=== PATIENT | male | born 1975 | race Caucasian/White ===

== ENCOUNTER 2017-05-22 04:54 | Inpatient (IN) | payer SELFPAY ==
[~2017-05-22] VITALS: Ht 190.5 cm; Wt 82.0 kg
[2017-05-22 05:01] VITALS: BP 121/76; PULSE 68; RESP 20; TEMP 98.7; O2SAT 96
[2017-05-22] MEDS ORDERED: MORPHINE SULFATE 2 MG/ML INJ IV PUSH ONE (05:30)
[2017-05-22] MEDS ORDERED: ONDANSETRON HCL 4 MG/2 ML VIAL IV PUSH ONE (05:30)
[2017-05-22] MEDS: SODIUM CHLOR 0.9% 1000 ML INJ 1,000 ML IV SCH ×6 (05:30→21:30)
[2017-05-22 05:31] VITALS: O2SAT 99
--- NOTE | 2017-05-22 05:34 | PD ---
HPI Chief Complaint: Fall Time Seen by Provider: 05:07 Travel History International Travel<30 days: No Contact w/Intl Traveler<30days: No Traveled to known affect area: No History of Present Illness HPI 41-year-old male complains of left upper back pain, left testicle pain and right low back pain. Patient states that he fell off a ladder last night. Patient denies loss of consciousness. Patient denies any headache or neck pain. Patient denies any states that has sharp pain localized left upper back and left lower rib cage area. Patient complained of left flank pain and right low back pain. Patient denies any focal weakness or numbness of extremity. Patient denies any extremity injury. Patient was seen at emergency room in [place]. CT scan abdomen pelvis shows left lower pole renal laceration. CT chest shows small volume left pneumothorax measuring approximately 10%. Mildly displaced posterior left 12th rib fracture. Possible compression fracture T4 through T6 thoracic vertebral bodies. Patient was transferred to [place] ED for further treatment. Patient was accepted by trauma surgeon for transfer. Patient has history IV drug abuse including cocaine and oxycodone. PFSH Past Medical History Psychiatric: Yes (ptsd) Tetanus Vaccination: Unknown Influenza Vaccination: No Social History Alcohol Use: Yes Tobacco Use: Yes Substance Use: Yes (oxy few times wk/cocaine shootup) Allergies-Medications (Allergen,Severity, Reaction): Coded Allergies: No Known Allergies (Verified Allergy, Unknown, 05/22/17) Review of Systems General / Constitutional: No: Fever Eyes: No: Visual changes HENT: No: Headaches Cardiovascular: No: Chest Pain or Discomfort Respiratory: No: Shortness of Breath Gastrointestinal: No: Abdominal Pain Genitourinary: No: Dysuria Musculoskeletal: No: Pain Skin: No Rash Neurologic: No: Weakness Psychiatric: No: Depression Endocrine: No: Polydipsia Hematologic/Lymphatic: No: Easy Bruising Physical Exam Narrative GENERAL: Well-nourished, well-developed patient. SKIN: Focused skin assessment warm/dry. HEAD: Normocephalic. EYES: No scleral icterus. No injection or drainage. NECK: Supple, trachea midline. No JVD or lymphadenopathy. CARDIOVASCULAR: Regular rate and rhythm without murmurs, gallops, or rubs. RESPIRATORY: Breath sounds equal bilaterally. No accessory muscle use. GASTROINTESTINAL: Abdomen soft, non-tender, nondistended. MUSCULOSKELETAL: No cyanosis, or edema. BACK: Moderate tenderness in palpation left upper back and left lower rib cage area. No crepitus no deformity noted. Without obvious deformity. No CVA tenderness. Neurologic exam normal. Data Data Last Documented VS Vital Signs Date Time Temp Pulse Resp B/P (MAP) Pulse Ox O2 Delivery O2 Flow Rate FiO2 05/22/17 05:01 98.7 68 20 121/76 (91) 96 Orders Orders Complete Blood Count With Diff (05/22/17 05:21) Comprehensive Metabolic Panel (05/22/17 05:21) Prothrombin Time / Inr (Pt) (05/22/17 05:21) Act Partial Throm Time (Ptt) (05/22/17 05:21) Urinalysis - C+S If Indicated (05/22/17 05:21) Chest, Single Ap (05/22/17 05:21) Iv Access Insert/Monitor (05/22/17 05:21) Ecg Monitoring (05/22/17 05:21) Oximetry (05/22/17 05:21) Sodium Chlor 0.9% 1000 Ml Inj (Ns 1000 M (05/22/17 05:30) Morphine Inj (Morphine Inj) (05/22/17 05:30) Ondansetron Inj (Zofran Inj) (05/22/17 05:30) MDM Medical Decision Making Medical Screen Exam Complete: Yes Emergency Medical Condition: Yes Differential Diagnosis Differential diagnosis including chest injury, abdominal injury. Narrative Course 41-year-old male with left rib fracture, left pneumothorax, laceration left kidney. Status post fall from a ladder. Patient was seen in the emergency room in [place] and transferred to [facility]. Diagnosis Primary Impression: Pneumothorax, left Additional Impressions: Kidney laceration, left Qualified Codes: S37.032A - Laceration of left kidney, unspecified degree, initial encounter Fracture of rib of left side Qualified Codes: S22.32XA - Fracture of one rib, left side, initial encounter for closed fracture Simone Ames MD May 22, 2017 05:34
--- NOTE | 2017-05-22 05:57 | RADRPT ---
EXAM DATE/TIME: 05/22/2017 05:33 [facility] COMPARISON: No previous studies available for comparison. INDICATIONS : Fell off ladder. Left rib pain. MEDICAL HISTORY : Prior rib fractures. SURGICAL HISTORY : None. ENCOUNTER: Initial ACUITY: 1 day PAIN SCORE: 9/10 LOCATION: Bilateral chest FINDINGS: Underinflated AP view of the chest demonstrates a normal-sized cardiac silhouette. There is minimal a telectasis at the lung bases. No effusion, consolidation, or pneumothorax is seen. The bones and soft tissues demonstrate no acute finding. 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 EKG li sang overlie the patient. CONCLUSION: Mild atelectasis at the lung bases. Otherwise, no acute finding is identified. No acute rib abnormali ty is seen. Jorge Slater MD on May 22, 2017 at 5:54 Board Certified Radiologist. This report was verified electronically.
[2017-05-22 06:06] LABS: AUTOMATED NEUTROPHIL # 3.7 TH/MM3 (1.8-7.7); BASOPHIL # 0.1 TH/MM3 (0-0.2); BASOPHIL % 0.8 % (0.0-2.0); EOSINOPHIL # 0.3 TH/MM3 (0-0.4); EOSINOPHIL % 4.1 % (0.0-4.0); HEMATOCRIT 37.3 % (39.0-51.0); HEMOGLOBIN 12.8 GM/DL (13.0-17.0); LYMPH % 35.3 % (9.0-44.0); LYMPHOCYTE # 2.9 TH/MM3 (1.0-4.8); MEAN CELL VOLUME 82.3 FL (80.0-100.0); MEAN CORPUSCULAR HEMOGLOBIN 28.3 PG (27.0-34.0); MEAN CORPUSCULAR HGB CONC 34.4 % (32.0-36.0); MEAN PLATELET VOLUME 7.8 FL (7.0-11.0); MONO % 14.6 % (0.0-8.0); MONOCYTE # 1.2 TH/MM3 (0-0.9); NEUT % 45.2 % (16.0-70.0); PLATELET COUNT 256 TH/MM3 (150-450); RED BLOOD COUNT 4.53 MIL/MM3 (4.50-5.90); WHITE BLOOD COUNT 8.2 TH/MM3 (4.0-11.0)
[2017-05-22] MEDS ORDERED: MISCELLANEOUS NURSING INFORMATION XX SCH (06:15)
[2017-05-22] MEDS ORDERED: ONDANSETRON HCL 4 MG/2 ML VIAL IV PUSH PRN (06:15)
[2017-05-22] MEDS ORDERED: MAGNESIUM HYDROXIDE SUSP 30 ML CUP PO PRN (06:15)
[2017-05-22] MEDS ORDERED: SODIUM CHLORIDE 0.9% FLUSH 10 ML FLUSH IV FLUSH PRN (06:15)
[2017-05-22] MEDS ORDERED: ENALAPRILAT 1.25 MG/ML VIAL IV PUSH PRN (06:15)
[2017-05-22] MEDS ORDERED: CHLORHEXIDINE GLUCONATE 2 % 1 PACK (2 CLOTHS) TOP PRN (06:15)
--- NOTE | 2017-05-22 06:15 | HHI.HP ---
HPI Service Critical Care Medicine Primary Care Physician Unknown Admission Diagnosis Left pneumothorax. Left renal laceration. Left rib fracture Diagnosis: Chief Complaint: Shortness of breath, left-sided back pain Travel History International Travel<30 Days: No Contact w/Intl Traveler <30 Da: No Traveled to Known Affected Are: No History of Present Illness 41-year-old man who was standing on the top rung of the ladder hanging floodlights when the ladder slipped out from under him he states he fell landing with his left side onto the ladder. He was evaluated at the [facility] and found on CT to have an occult left-sided pneumothorax 12th rib fracture, and a grade 3-4 left-sided inferior pole renal laceration. He was transferred to [facility] for definitive management of his traumatic injuries. Of note he is a user of cocaine and narcotics. Review of Systems Constitutional: DENIES: Diaphoretic episodes, Fatigue, Fever, Weight gain, Weight loss, Chills, Dizziness, Change in appetite, Night Sweats Endocrine: DENIES: Heat/cold intolerance, Polydipsia, Polyuria, Polyphagia Eyes: DENIES: Blurred vision, Diplopia, Eye inflammation, Eye pain, Vision loss , Photosensitivity, Double Vision Ears, nose, mouth, throat: DENIES: Tinnitus, Hearing loss, Vertigo, Nasal discharge, Oral lesions, Throat pain, Hoarseness, Ear Pain, Running Nose, Epistaxis, Sinus Pain, Toothache, Odynophagia Respiratory: COMPLAINS OF: Shortness of breath, DENIES: Apneas, Cough, Snoring , Wheezing, Hemoptysis, Sputum production Cardiovascular: COMPLAINS OF: Chest pain (left sided chest wall pain) Gastrointestinal: DENIES: Abdominal pain, Black stools, Bloody stools, Constipation, Diarrhea, Nausea, Vomiting, Difficulty Swallowing, Anorexia Genitourinary: COMPLAINS OF: Hematuria, DENIES: Sexual dysfunction, Urinary frequency, Urinary incontinence, Urgency, Dysuria, Nocturia, Penile Discharge, Testicular Pain, Testicular Swelling Musculoskeletal: COMPLAINS OF: Muscle aches, Back pain, DENIES: Joint pain, Stiffness, Joint Swelling, Neck pain Integumentary: DENIES: Abnormal pigmentation, Nail changes, Pruritus, Rash Hematologic/lymphatic: DENIES: Bruising, Lymphadenopathy Immunologic/allergic: DENIES: Eczema, Urticaria Neurologic: DENIES: Abnormal gait, Headache, Localized weakness, Paresthesias, Seizures, Speech Problems, Tremor, Poor Balance Psychiatric: COMPLAINS OF: Anxiety (PTSD), DENIES: Confusion, Mood changes, Depression, Hallucinations, Agitation, Suicidal Ideation, Homicidal Ideation, Delusions Past Family Social History Allergies: Coded Allergies: No Known Allergies (Verified Allergy, Unknown, 05/22/17) Past Medical History PTSD Reported Medications None Family History Reviewed and not relevant Social History Denies alcohol use he is a smoker and uses cocaine and narcotics Physical Exam Vital Signs Vital Signs Date Time Temp Pulse Resp B/P (MAP) Pulse Ox O2 Delivery O2 Flow Rate FiO2 05/22/17 05:31 99 Nasal Cannula 2.00 05/22/17 05:01 98.7 68 20 121/76 (91) 96 Physical Exam GENERAL: Well-nourished, well-developed patient. SKIN: Focused skin assessment warm/dry. HEAD: Normocephalic. EYES: No scleral icterus. No injection or drainage. NECK: Supple, trachea midline. No JVD or lymphadenopathy. CARDIOVASCULAR: Regular rate and rhythm without murmurs, gallops, or rubs. RESPIRATORY: Breath sounds equal bilaterally. No accessory muscle use. GASTROINTESTINAL: Abdomen soft, non-tender, nondistended. MUSCULOSKELETAL: No cyanosis, or edema. BACK: Moderate tenderness in palpation left upper back and left flank with no bony crepitus. NERUO: No focal deficit, cranial nerves II through XII appear grossly intact PSYCH: Mood and affect seem appropriate Laboratory Laboratory Tests Test 05/22/17 05:55 White Blood Count 8.2 Red Blood Count 4.53 Hemoglobin 12.8 Hematocrit 37.3 Mean Corpuscular Volume 82.3 Mean Corpuscular Hemoglobin 28.3 Mean Corpuscular Hemoglobin Concent 34.4 Red Cell Distribution Width 16.0 Platelet Count 256 Mean Platelet Volume 7.8 Neutrophils (%) (Auto) 45.2 Lymphocytes (%) (Auto) 35.3 Monocytes (%) (Auto) 14.6 Eosinophils (%) (Auto) 4.1 Basophils (%) (Auto) 0.8 Neutrophils # (Auto) 3.7 Lymphocytes # (Auto) 2.9 Monocytes # (Auto) 1.2 Eosinophils # (Auto) 0.3 Basophils # (Auto) 0.1 CBC Comment DIFF FINAL Differential Comment Result Diagram: 05/22/17 0555 Caprini VTE Risk Assessment Caprini VTE Risk Assessment: Mod/High Risk (score >= 2) VTE Pharm Contraindication: Hemorrhage Caprini Risk Assessment Model Point Value = 1 Point Value = 2 Point Value = 3 Point Value = 5 Age 41-60 Minor surgery BMI > 25 kg/m2 Swollen legs Varicose veins or History of unexplained or recurrent spontaneous Oral contraceptives or hormone replacement Sepsis (< 1 month) Serious lung disease, including pneumonia (< 1 month) Abnormal pulmonary function Acute myocardial infarction Congestive heart failure (< 1 month) History of inflammatory bowel disease Medical patient at bed rest Age 61-74 Arthroscopic surgery Major open surgery (> 45 min) Laparoscopic surgery (> 45 min) Malignancy Confined to bed (> 72 hours) Immobilizing plaster cast Central venous access Age >= 75 History of VTE Family history of VTE Factor V Leiden Prothrombin [id number] Lupus anticoagulant Anticardiolipin antibodies Elevated serum homocysteine Heparin-induced thrombocytopenia Other congenital or acquired thrombophilia Stroke (< 1 month) Elective arthroplasty Hip, pelvis, or leg fracture Acute spinal cord injury (< 1 month) Prophylaxis Regimen Total Risk Factor Score Risk Level Prophylaxis Regimen 0-1 Low Early ambulation 2 Moderate Order ONE of the following: *Sequential Compression Device (SCD) *Heparin 5000 units SQ BID 3-4 Higher Order ONE of the following medications: *Heparin 5000 units SQ TID *Enoxaparin/Lovenox 40 mg SQ daily (WT < 150 kg, CrCl > 30 mL/min) *Enoxaparin/Lovenox 30 mg SQ daily (WT < 150 kg, CrCl > 10-29 mL/min) *Enoxaparin/Lovenox 30 mg SQ BID (WT < 150 kg, CrCl > 30 mL/min) AND/OR *Sequential Compression Device (SCD) 5 or more Highest Order ONE of the following medications: *Heparin 5000 units SQ TID (Preferred with Epidurals) *Enoxaparin/Lovenox 40 mg SQ daily (WT < 150 kg, CrCl > 30 mL/min) *Enoxaparin/Lovenox 30 mg SQ daily (WT < 150 kg, CrCl > 10-29 mL/min) *Enoxaparin/Lovenox 30 mg SQ BID (WT < 150 kg, CrCl > 30 mL/min) AND *Sequential Compression Device (SCD) Assessment and Plan Assessment and Plan 41-year-old man with an occult pneumothorax, 12th rib fracture, and left grade 3 renal laceration -Admit to trauma service for pain control and pulmonary toilet -Chest x-ray shows no evidence of pneumothorax, repeat tomorrow-Place three-way [place] and irrigated until clear -Urology consult-we'll consult neurosurgery for questionable T4 5 6 vertebral body fractures -Pain control may be difficult as he is a narcotics abuser Alex Horowitz MD May 22, 2017 06:15
[2017-05-22 06:18] LABS: PROTHROMBIN TIME - PATIENT 10.4 SEC (9.8-11.6)
[2017-05-22 06:28] LABS: ALKALINE PHOSPHATASE 130 U/L (45-117); TOTAL BILIRUBIN ADULT 0.3 MG/DL (0.2-1.0); TOTAL PROTEIN 7.1 GM/DL (6.4-8.2)
[2017-05-22 06:30] LABS: ALBUMIN 3.2 GM/DL (3.4-5.0); ALT (GPT) 181 U/L (12-78); AST (GOT) 166 U/L (15-37); BICARBONATE 27.7 MEQ/L (21.0-32.0); BLOOD UREA NITROGEN 14 MG/DL (7-18); CALCIUM 8.9 MG/DL (8.5-10.1); CHLORIDE 107 MEQ/L (98-107); CREATININE 1.16 MG/DL (0.60-1.30); GLOMERULAR FILTRATION RATE 70 ML/MIN (>89); GLUCOSE,RANDOM 81 MG/DL (74-106); SODIUM (NA) 140 MEQ/L (136-145)
[2017-05-22 06:33] LABS: BILIRUBIN, URINE NEG (NEG); BLOOD, URINE LARGE (NEG); GLUCOSE,URINE NEG (NEG); KETONE, URINE NEG (NEG); NITRITE,URINE NEG (NEG); PH, URINE 6.5 (5.0-8.5); URINE LEUKOCYTE ESTERASE NEG (NEG); WHITE BLOOD CELL CLUMPS FEW
[2017-05-22 06:34] LABS: URINE COLOR LIGHT-RED (YELLW/STRAW)
[2017-05-22] MEDS ORDERED: HYDROmorphone HCL 2 MG TAB PO PRN (07:30)
[2017-05-22 07:36] VITALS: BP 117/62; PULSE 84; RESP 16; O2SAT 100
[2017-05-22] MEDS: HYDROmorphone HCL 4 MG TAB PO PRN ×4 (07:36→20:10)
[2017-05-22] MEDS ORDERED: LACTULOSE SYRUP 20 GM/30 ML CUP PO PRN (07:45)
[2017-05-22] MEDS: RESP: ALBUTEROL 2.5 MG/IPRATROPIUM 0.5 MG NEB (SCH) NEB ×2 (08:00→09:53)
[2017-05-22] MEDS: DOCUSATE SODIUM 50 MG/SENNA 8.6 MG TAB PO SCH ×2 (08:53→20:10)
[2017-05-22] MEDS: LIDOCAINE HCL 5% PATCH T-DERMAL SCH (08:54)
[2017-05-22] MEDS: ACETAMINOPHEN 1000 MG/100 ML 100 ML IV SCH ×3 (08:55→20:11)
[2017-05-22] MEDS: METHOCARBAMOL 500 MG TAB PO SCH ×3 (08:55→20:10)
[2017-05-22] MEDS ORDERED: DOCUSATE SODIUM 100 MG CAP PO SCH (09:00)
--- NOTE | 2017-05-22 09:21 | RADRPT ---
EXAM DATE/TIME: 05/22/2017 08:03 [facility] COMPARISON: No previous studies available for comparison. INDICATIONS : Patient fell off ladder last night, transferred from another facility with reports of thoracic verteb susy fractures RADIATION DOSE: 25.07 CTDIvol (mGy) MEDICAL HISTORY : None SURGICAL HISTORY : None. ENCOUNTER: Initial ACUITY: 1 day PAIN SCALE: 7/10 LOCATION: upper back TECHNIQUE: Volumetric scanning of the thoracic spine was performed. Multiplanar reconstructions in the sagittal , coronal and oblique axial planes were performed. Using automated exposure control and adjustment o f the mA and/or kV according to patient size, radiation dose was kept as low as reasonably achievable to obtain optimal diagnostic quality images. DICOM format image data is available electronically f or review and comparison. FINDINGS: The vertebral bodies of the thoracic spine are in normal alignment without evidence of subluxation. On the sagittal reconstructions there is minimal anterior wedging of T3, T4, T5 and T6. These are no t apparent on the axial images. There is no thecal sac compromise. T7-T12 are intact. There is no significant degenerative changes. There is no canal compromise. There is no paravertebral mass. Portion of the lung visualized show no evidence for posterior pneumothorax.. CONCLUSION: Minimal anterior wedging as described above. These are not apparent on the axial john a sets.. There is no canal compromise. Leo Almonte MD FACR on May 22, 2017 at 9:16 Board Certified Radiologist. This report was verified electronically.
[2017-05-22 09:52] VITALS: BP 129/85; PULSE 66; RESP 20; TEMP 97.8; O2SAT 98
[2017-05-22] MEDS ORDERED: NICOTINE 14 MG/24 HR PATCH TOPICAL ONE (10:00)
--- NOTE | 2017-05-22 11:30 | MB ---
cc: Darrick Chang DO DATE OF CONSULT: 05/22/2017 This is a 41-year-old male who fell from a ladder over in Transfer and was transferred to [place]. CT scan at the hospital there demonstrated a left-sided pneumothorax with a twelfth chest rib fracture and a grade III-IV left-sided inferior pole renal laceration. I was unable to visualize the CT scan from [facility], and I have ordered a new CT scan here at [place]. He is having gross hematuria. He does complain of left-sided flank pain but denies any nausea or vomiting. He is urinating dark-colored blood at the present time. He does not visualize any clots. He does have a history of drug abuse. HE HAS NO KNOWN DRUG ALLERGIES. PAST MEDICAL HISTORY: Noted for PTSD. FAMILY HISTORY: Noncontributory. SOCIAL HISTORY: He does have illicit drug use but denies alcohol. He is a smoker. REVIEW OF SYSTEMS: Notes left-sided flank pain. Denies diaphoresis, fever. Denies heat or cold intolerance. Denies blurry vision or trouble seeing or eye pain. Denies tinnitus, hearing loss, vertigo. He does complain of some shortness of breath. He does complain of left-sided chest pain and he does complain of left-sided flank pain. He notes hematuria. He denies erectile dysfunction. Denies any abnormal pigmentation or bruising. Denies eczema. Denies abnormal gait. Does not a history of anxiety with PTSD. PRESENT VITALS TODAY: Temp 97.8, heart rate 66, respiratory rate 20, 129/85, 98% on room air. He is a well-developed, well-nourished 41-year-old male, no acute distress. HEENT: Normocephalic, atraumatic. Pupils equal, round, regular, reactive to light. Extraocular movements intact. NECK: Supple. HEART: Regular rate and rhythm. LUNGS: Clear. ABDOMEN: Soft. There is some left-sided tenderness noted with palpation. There is left CVA tenderness noted also. EXTREMITIES: Show no cyanosis, clubbing or edema. GENITOURINARY: Shows normal phallus, testes descending. NEUROLOGIC: There are no focal deficits. Cranial nerves 2-12 are intact. PSYCHIATRIC: Generalized mood. White count 8.2, hemoglobin 12.8, hematocrit 37.3, platelet count of 256. Sodium 140, potassium 4.6, chloride 107, CO2 27.7, BUN of 14, creatinine 1.16, glucose of 81. Urinalysis shows numerous red cells with 127 white cells. PT is 10.4, INR 1.0. PTT is 26.4. IMAGING: CT scan of the abdomen and pelvis is currently pending. ASSESSMENT: A 41-year-old male status post fall from a ladder with a history on report of a laceration to the left lower pole kidney with evidence of gross hematuria. 1. Will obtain a CT scan of the abdomen and pelvis with IV contrast in delayed images to evaluate for any evidence of urinoma. 2. Will follow with you closely. 3. Maintain bed rest and follow hemoglobin. Start IV fluids to help hematuria clear. Thank you for the consult and allowing me to participate in the care of this patient. DO MARIAN Wang/JOSUÉ , 11:11 AM , 11:29 AM
[2017-05-22] MEDS ORDERED: IOHEXOL 350 MG/ML 10 ML VIAL (for RAD DIAG) IVCONTRAST ONE (13:05)
--- NOTE | 2017-05-22 13:25 | RADRPT ---
EXAM DATE/TIME: 05/22/2017 12:51 This report includes an Addendum and supersedes previous reports for this exam. [facility] COMPARISON: No previous studies available for comparison. INDICATIONS : Trauma, fall from ladder. IV CONTRAST: 96 cc Omnipaque 350 (iohexol) IV ORAL CONTRAST: No oral contrast ingested. RADIATION DOSE: 6.57 CTDIvol (mGy) MEDICAL HISTORY : None SURGICAL HISTORY : None. ENCOUNTER: Initial ACUITY: 1 day PAIN SCALE: 6/10 LOCATION: Right TECHNIQUE: Volumetric scanning of the abdomen and pelvis was performed. Using automated exposure control and ad justment of the mA and/or kV according to patient size, radiation dose was kept as low as reasonably achievable to obtain optimal diagnostic quality images. DICOM format image data is available electro nically for review and comparison. FINDINGS: LOWER LUNGS: Bibasilar dependent atelectatic changes. Small pneumothorax on left. LIVER: Homogeneous density without lesion. There is no dilation of the biliary tree. No calcified gallston es. SPLEEN: Normal size without lesion. PANCREAS: Within normal limits. KIDNEYS: Parenchyma lacerations in the midpole of the left kidney. Patient reportedly has a known renal fractu re. There is perinephric stranding but no active hemorrhage or urinoma. Benign-appearing 1.4 cm cyst posteriorly at the junction of the upper and midpole of the left kidney. Right kidney is radiographic ally intact. ADRENAL GLANDS: Within normal limits. VASCULAR: There is no aortic aneurysm. BOWEL/MESENTERY: The stomach, small bowel, and colon demonstrate no acute abnormality. There is no free intraperitone al air or fluid. Mild diverticular disease in the sigmoid without diverticulitis ABDOMINAL WALL: Within normal limits. RETROPERITONEUM: There is no lymphadenopathy. BLADDER: No wall thickening or mass. REPRODUCTIVE: Within normal limits. INGUINAL: There is no lymphadenopathy or hernia. MUSCULOSKELETAL: Isolated, displaced left posterior 12th rib fracture. Possible old fracture of the left transverse pr ocess of L1. Partial sacralization of the right side of L5 with a pseudoarticulation with the ipsilat eral sacral ala. CONCLUSION: 1. Isolated, displaced left posterior 12th rib fracture with a small left-sided pneumothorax. 2. Bibasilar atelectatic changes. 3. There appears to be a linear fracture through the anterior midpole of the left kidney with perinep hric stranding. No active hemorrhage or urinoma, however. 4. Mild diverticular disease of the sigmoid without diverticulitis. 5. Partial sacralization of the right side of L5 with pseudoarticulation of the transverse process wi th the adjacent sacral ala. Possible old fracture injury of the left L1 transverse process. Isaiah Guzman MD on May 22, 2017 at 13:14 Board Certified Radiologist. This report was verified electronically. ADDENDUM: Second requested set of delayed images. Again, stable renal parenchymal laceration with some perineph pino stranding but no active hemorrhage or urinoma. Isaiah Guzman MD on May 22, 2017 at 16:18 Board Certified Radiologist. This report was verified electronically.
--- NOTE | 2017-05-22 16:05 | RADRPT ---
EXAM DATE/TIME: 05/22/2017 15:05 [facility] COMPARISON: CT ABDOMEN & PELVIS W CONTRAST, May 22, 2017, 12:51. INDICATIONS : Rule out leak. MEDICAL HISTORY : None. SURGICAL HISTORY : None. ENCOUNTER: Initial ACUITY: 1 day PAIN SCORE: 0/10 LOCATION: Left kidney. FINDINGS: A single supine frontal view the abdomen shows contrast within the collecting system of both kidneys as well as the urinary bladder. No dilatation. No extraluminal contrast observed to suggest a leak in volving the collecting system. Significant stool burden is seen throughout normal caliber colon. No d ilated loops of bowel. No organomegaly. Mild scoliotic curvature. CONCLUSION: No extraluminal contrast to suggest a urinoma or collecting system leak. Constipation. Bernardo Rosario Jr., MD on May 22, 2017 at 16:00 Board Certified Radiologist. This report was verified electronically.
--- NOTE | 2017-05-22 17:10 | HHI.PR ---
Subjective Subjective Notes Denies back pain. Complains of left flank pain Per nursing patient requesting Dilaudid, refusing ordered oxycodone for pain Objective Vitals/I&O Vital Signs Date Time Temp Pulse Resp B/P (MAP) Pulse Ox O2 Delivery O2 Flow Rate FiO2 05/22/17 14:22 18 05/22/17 09:52 97.8 66 129/85 (100) 98 05/22/17 07:36 Room Air 05/22/17 05:31 2.00 Labs Laboratory Tests Test 05/22/17 05:55 05/22/17 06:11 White Blood Count 8.2 Red Blood Count 4.53 Hemoglobin 12.8 Hematocrit 37.3 Mean Corpuscular Volume 82.3 Mean Corpuscular Hemoglobin 28.3 Mean Corpuscular Hemoglobin Concent 34.4 Red Cell Distribution Width 16.0 Platelet Count 256 Mean Platelet Volume 7.8 Neutrophils (%) (Auto) 45.2 Lymphocytes (%) (Auto) 35.3 Monocytes (%) (Auto) 14.6 Eosinophils (%) (Auto) 4.1 Basophils (%) (Auto) 0.8 Neutrophils # (Auto) 3.7 Lymphocytes # (Auto) 2.9 Monocytes # (Auto) 1.2 Eosinophils # (Auto) 0.3 Basophils # (Auto) 0.1 CBC Comment DIFF FINAL Differential Comment Prothrombin Time 10.4 Prothromb Time International Ratio 1.0 Activated Partial Thromboplast Time 26.4 Blood Urea Nitrogen 14 Creatinine 1.16 Random Glucose 81 Total Protein 7.1 Albumin 3.2 Calcium Level 8.9 Alkaline Phosphatase 130 Aspartate Amino Transf (AST/SGOT) 166 Alanine Aminotransferase (ALT/SGPT) 181 Total Bilirubin 0.3 Sodium Level 140 Potassium Level 4.6 Chloride Level 107 Carbon Dioxide Level 27.7 Anion Gap 5 Estimat Glomerular Filtration Rate 70 Urine Color LIGHT-RED Urine Turbidity HAZY Urine pH 6.5 Urine Specific [place] GREATER THAN 1.050 Urine Protein 100 Urine Glucose (UA) NEG Urine Ketones NEG Urine Occult Blood LARGE Urine Nitrite NEG Urine Bilirubin NEG Urine Urobilinogen LESS THAN 2.0 Urine Leukocyte Esterase NEG Urine RBC Urine WBC 127 Urine WBC Clumps FEW Microscopic Urinalysis Comment CULTURE INDICATED Date/Time Source Procedure Growth Status 05/22/17 06:11 Urine Clean Catch Urine Culture Pending Received Radiology Last Impressions Chest X-Ray 05/22/17 0521 Signed Impressions: Service Date/Time: Monday, May 22, 2017 05:33 - CONCLUSION: Mild atelectasis at the lung bases. Otherwise, no acute finding is identified. No acute rib abnormality is seen. Jorge Slater MD Thoracic Spine CT 05/22/17 0000 Signed Impressions: Service Date/Time: Monday, May 22, 2017 08:03 - CONCLUSION: Minimal anterior wedging as described above. These are not apparent on the axial data sets.. There is no canal compromise. Leo Almonte MD FACR Abdomen/Pelvis CT 05/22/17 0000 Signed Impressions: Service Date/Time: Monday, May 22, 2017 12:51 - CONCLUSION: 1. Isolated, displaced left posterior 12th rib fracture with a small left-sided pneumothorax. 2. Bibasilar atelectatic changes. 3. There appears to be a linear fracture through the anterior midpole of the left kidney with perinephric stranding. No active hemorrhage or urinoma, however. 4. Mild diverticular disease of the sigmoid without diverticulitis. 5. Partial sacralization of the right side of L5 with pseudoarticulation of the transverse process with the adjacent sacral ala. Possible old fracture injury of the left L1 transverse process. Isaiah Guzman MD ADDENDUM: Second requested set of delayed images. Again, stable renal parenchymal laceration with some perinephric stranding but no active hemorrhage or urinoma. Isaiah Guzman MD Abdomen X-Ray 05/22/17 0000 Signed Impressions: Service Date/Time: Monday, May 22, 2017 15:05 - CONCLUSION: No extraluminal contrast to suggest a urinoma or collecting system leak. Constipation. Bernardo Rosario Jr., MD Narrative Exam GENERAL: 41 year old male lying in bed in no acute distress. SKIN: Warm and dry. HEAD: Normocephalic. EYES: Pupils equal and round. No scleral icterus. ENT: No nasal bleeding or discharge. Mucous membranes pink and moist. NECK: Trachea midline. No JVD. CARDIOVASCULAR: Regular rate and rhythm. RESPIRATORY: No accessory muscle use. Lungs clear and diminished to auscultation. Breath sounds equal bilaterally. LEFT chest painful with palpation , no crepitus noted. GASTROINTESTINAL: Abdomen soft, non-tender, nondistended. + BS. MUSCULOSKELETAL: Extremities without cyanosis, or edema. LEFT flank pain with palpation. No tenderness along the spinal column. MAEW, + perfused NEUROLOGICAL: Awake and alert. Normal speech. A/P Assessment and Plan [place]: Fell from the top rung of a ladder landing on his left side. Transferred for trauma services INJURIES: Grade 3-4 LEFT kidney lac LEFT apical PTX LEFT rib fx (12) PMHx: IVDU (cocaine, oxycodone), PTSD, tobacco use Grade 3-4 LEFT kidney lac Urology consulted Pain control UA + hematuria CT Abd/Pel pending IVF Voiding well AM labs LEFT apical PTX, LEFT rib fx Supportive care Pulmonary toileting CXR today shows mild bibasilar atelectasis, no rib fx identified Pain control Bowel regimen OOB Plan of care discussed with patient and RN at bedside. Collaborating Trauma surgeon agrees with plan. Case management consulted to assist with discharge planning. Dash Ann May 22, 2017 17:10
[2017-05-22 20:00] VITALS: BP 131/86; PULSE 71; RESP 16; TEMP 99.3; O2SAT 100
[2017-05-23] VITALS (7 sets, daily range): BP systolic 120–126; BP diastolic 67–85; PULSE 60–71; RESP 16–18; TEMP 97.8–98.9; O2SAT 96–100
[2017-05-23] MEDS ORDERED: CHLORHEXIDINE GLUCONATE 2 % 1 PACK (2 CLOTHS) TOP SCH (04:00)
[2017-05-23] MEDS: ACETAMINOPHEN 1000 MG/100 ML 100 ML IV SCH (04:30)
[2017-05-23] MEDS: SODIUM CHLOR 0.9% 1000 ML INJ 1,000 ML IV SCH ×4 (05:30→12:08)
[2017-05-23] MEDS: HYDROmorphone HCL 4 MG TAB PO PRN ×2 (05:41→09:29)
[2017-05-23] MEDS: METHOCARBAMOL 500 MG TAB PO SCH ×2 (05:41→14:02)
--- NOTE | 2017-05-23 06:30 | RADRPT ---
EXAM DATE/TIME: 05/23/2017 05:41 [facility] COMPARISON: CHEST SINGLE AP, May 22, 2017, 5:33. INDICATIONS : Follow up trauma, short of breath, pain left posterior ribs MEDICAL HISTORY : left posterior rib fracture, 12th rib SURGICAL HISTORY : None. ENCOUNTER: Subsequent ACUITY: 1 day PAIN SCORE: 10/10 LOCATION: Bilateral chest FINDINGS: Portable AP view of the chest demonstrates a normal-sized cardiac silhouette. No effusion, consolidat ion, or pneumothorax is visualized. The bones and soft tissues demonstrate no acute abnormality. Ther e is mild atelectasis at the lung bases. CONCLUSION: No acute abnormality is identified. Jorge Slater MD on May 23, 2017 at 6:28 Board Certified Radiologist. This report was verified electronically.
[2017-05-23 07:10] LABS: BASOPHIL # 0.1 TH/MM3 (0-0.2); BASOPHIL % 1.1 % (0.0-2.0); EOSINOPHIL # 0.3 TH/MM3 (0-0.4); EOSINOPHIL % 4.8 % (0.0-4.0); HEMATOCRIT 37.9 % (39.0-51.0); HEMOGLOBIN 12.7 GM/DL (13.0-17.0); LYMPH % 39.8 % (9.0-44.0); LYMPHOCYTE # 2.7 TH/MM3 (1.0-4.8); MEAN CELL VOLUME 82.9 FL (80.0-100.0); MEAN CORPUSCULAR HEMOGLOBIN 27.8 PG (27.0-34.0); MEAN CORPUSCULAR HGB CONC 33.5 % (32.0-36.0); MEAN PLATELET VOLUME 8.2 FL (7.0-11.0); MONO % 9.6 % (0.0-8.0); MONOCYTE # 0.6 TH/MM3 (0-0.9); NEUT % 44.7 % (16.0-70.0); PLATELET COUNT 225 TH/MM3 (150-450); RED BLOOD COUNT 4.58 MIL/MM3 (4.50-5.90); RED CELL DISTRIBUTION WIDTH 16.6 % (11.6-17.2); WHITE BLOOD COUNT 6.8 TH/MM3 (4.0-11.0)
[2017-05-23 07:31] LABS: BICARBONATE 24.7 MEQ/L (21.0-32.0); CALCIUM 8.4 MG/DL (8.5-10.1); CREATININE 0.87 MG/DL (0.60-1.30)
[2017-05-23] MEDS: RESP: ALBUTEROL 2.5 MG/IPRATROPIUM 0.5 MG NEB (SCH) NEB ×3 (08:00→16:00)
--- NOTE | 2017-05-23 08:27 | HHI.PR ---
Subjective Patient symptoms today Pt seen and examined. CT scan reviewed. No evidence of extravasation noted on delayed images. Objective Vital Signs Vital Signs Date Time Temp Pulse Resp B/P (MAP) Pulse Ox O2 Delivery O2 Flow Rate FiO2 05/23/17 03:00 98.0 60 16 120/69 (86) 100 05/23/17 00:00 98.9 69 17 125/85 (98) 100 05/22/17 20:00 99.3 71 16 131/86 (101) 100 05/22/17 14:22 18 05/22/17 09:52 97.8 66 20 129/85 (100) 98 05/22/17 08:55 16 Intake & Output 05/23/17 05/23/17 07:00 19:00 Intake Total 1850 ml Balance 1850 ml Intake Oral 1850 ml # Voids 4 # Bowel Movements 0 Result Diagram: 05/23/17 0516 05/23/17 0516 Imaging Last 24 hours Impressions Chest X-Ray 05/23/17 0000 Signed Impressions: Service Date/Time: Tuesday, May 23, 2017 05:41 - CONCLUSION: No acute abnormality is identified. Jorge Slater MD Objective Remarks Abd:soft,nt,nd Voiding: blood tinged urine; no clots Medications and IVs Current Medications Medications (Trade) Dose Ordered Sig/Jamila Route Start Time Stop Time Status Last Admin Sodium Chloride 1,000 ml @ 125 mls/hr Q8H IV 05/22/17 05:30 05/22/17 09:35 (NS Flush) 2 ml UNSCH PRN IV FLUSH 05/22/17 06:15 (Vasotec Inj) 1.25 mg Q8H PRN IV PUSH 05/22/17 06:15 (Zofran Inj) 4 mg Q6H PRN IV PUSH 05/22/17 06:15 (Milk Of Magnesia Liq) 30 ml Q6H PRN PO 05/22/17 06:15 Miscellaneous Information 1 Q361D XX 05/22/17 06:15 05/22/17 06:15 (Chlorhexidine 2% Cloth) 3 pack Taper DAILY@04 TOP 05/23/17 04:00 05/19/18 03:59 (Chlorhexidine 2% Cloth) 3 pack UNSCH PRN TOP 05/22/17 06:15 (Dilaudid) 2 mg Q4H PRN PO 05/22/17 07:30 (Dilaudid) 4 mg Q4H PRN PO 05/22/17 07:30 05/23/17 05:41 (Duoneb Neb) 1 ampule Q4HR WHILE AWAKE NEB NEB 05/22/17 08:00 (Robaxin) 500 mg Q8HR PO 05/22/17 08:00 05/23/17 05:41 (Lidoderm 5% Patch.12 Hr) 1 patch DAILY T-DERMAL 05/22/17 09:00 05/22/17 08:54 (Marilee-Colace) 2 tab BID PO 05/22/17 09:00 05/22/17 20:10 (Lactulose Liq) 30 ml DAILY PRN PO 05/22/17 07:45 Miscellaneous Information 1 ONCE ONCE T-DERMAL 05/23/17 10:00 05/23/17 10:01 Sodium Chloride 1,000 ml @ 125 mls/hr Q8H IV 05/22/17 13:00 05/23/17 05:40 (Habitrol 21 Mg Patch.24 Hr) 1 patch DAILY T-DERMAL 05/23/17 09:00 Miscellaneous Information 1 DAILY T-DERMAL 05/23/17 10:00 Assessment and Plan Assessment and Plan 41 y.o male s/p fall with left renal Grade 3 laceration. No evidence of extravasation on delayed images. Hgb stable at 12.7 Continue IVF until urine clears Bedrest No need for ureteral stent placement Darrick Chang DO May 23, 2017 08:27
[2017-05-23] MEDS: DOCUSATE SODIUM 50 MG/SENNA 8.6 MG TAB PO SCH (08:44)
[2017-05-23] MEDS: LIDOCAINE HCL 5% PATCH T-DERMAL SCH (08:45)
[2017-05-23] MEDS ORDERED: NICOTINE 21 MG/24 HR PATCH T-DERMAL SCH (09:00)
[2017-05-23] MEDS ORDERED: REMOVE OLD PATCH T-DERMAL ONE (10:00)
[2017-05-23] MEDS ORDERED: REMOVE OLD PATCH T-DERMAL SCH (10:00)
[2017-05-23] MEDS ORDERED: oxyCODONE/ACETAMINOPHEN 7.5 MG/325 MG TAB PO PRN ×2 (12:15)
[2017-05-23] MEDS ORDERED: MAGN30S PO (13:50)
[2017-05-23] MEDS ORDERED: PERI PO (13:50)
[2017-05-23] MEDS ORDERED: WALKER WHEELS/F1 MIS (14:02)
[2017-05-23] MEDS ORDERED: METH500T3 PO (15:17)
[2017-05-23] MEDS ORDERED: OXYC1TAB35 PO (15:17)
--- NOTE | 2017-05-23 15:28 | HHI.DS ---
Discharge Summary Admission Date May 22, 2017 at 05:36 Discharge Date: May 23, 2017 Admitting Diagnosis Left pneumothorax. Left renal laceration. Left rib fracture (1) Fall, initial encounter ICD Codes: W19.XXXA - Unspecified fall, initial encounter (2) Fracture of rib of left side ICD Codes: S22.32XA - Fracture of one rib, left side, initial encounter for closed fracture Status: Acute (3) Pneumothorax, left ICD Codes: J93.9 - Pneumothorax, unspecified Status: Acute (4) Kidney laceration, left ICD Codes: S37.032A - Laceration of left kidney, unspecified degree, initial encounter Status: Acute Brief History S/P Trauma: Fall CBC/BMP: 05/23/17 0516 05/23/17 0516 Significant Findings Laboratory Tests Test 05/22/17 05:55 05/22/17 06:11 05/23/17 05:16 Hemoglobin 12.8 GM/DL (13.0-17.0) 12.7 GM/DL (13.0-17.0) Hematocrit 37.3 % (39.0-51.0) 37.9 % (39.0-51.0) Monocytes (%) (Auto) 14.6 % (0.0-8.0) 9.6 % (0.0-8.0) Eosinophils (%) (Auto) 4.1 % (0.0-4.0) 4.8 % (0.0-4.0) Monocytes # (Auto) 1.2 TH/MM3 (0-0.9) Albumin 3.2 GM/DL (3.4-5.0) Alkaline Phosphatase 130 U/L (45-117) Aspartate Amino Transf (AST/SGOT) 166 U/L (15-37) Alanine Aminotransferase (ALT/SGPT) 181 U/L (12-78) Estimat Glomerular Filtration Rate 70 ML/MIN (>89) Urine Color LIGHT-RED (YELLW/STRAW) Urine Turbidity HAZY (CLEAR) Urine Specific [place] GREATER THAN 1.050 Urine Protein 100 mg/dL (NEG-TRACE) Urine Occult Blood LARGE (NEG) Urine WBC 127 /hpf (0-5) Urine WBC Clumps FEW (NONE) Calcium Level 8.4 MG/DL (8.5-10.1) Imaging Last Impressions Chest X-Ray 3/6/18 0000 Signed Impressions: Service Date/Time: Tuesday, May 23, 2017 05:41 - CONCLUSION: No acute abnormality is identified. Jorge Slater MD Thoracic Spine CT 05/22/17 0000 Signed Impressions: Service Date/Time: Monday, May 22, 2017 08:03 - CONCLUSION: Minimal anterior wedging as described above. These are not apparent on the axial data sets.. There is no canal compromise. Leo Almonte MD FACR Abdomen/Pelvis CT 05/22/17 0000 Signed Impressions: Service Date/Time: Monday, May 22, 2017 12:51 - CONCLUSION: 1. Isolated, displaced left posterior 12th rib fracture with a small left-sided pneumothorax. 2. Bibasilar atelectatic changes. 3. There appears to be a linear fracture through the anterior midpole of the left kidney with perinephric stranding. No active hemorrhage or urinoma, however. 4. Mild diverticular disease of the sigmoid without diverticulitis. 5. Partial sacralization of the right side of L5 with pseudoarticulation of the transverse process with the adjacent sacral ala. Possible old fracture injury of the left L1 transverse process. Isaiah Guzman MD ADDENDUM: Second requested set of delayed images. Again, stable renal parenchymal laceration with some perinephric stranding but no active hemorrhage or urinoma. Isaiah Guzman MD Abdomen X-Ray 05/22/17 Signed Impressions: Service Date/Time: Monday, May 22, 2017 15:05 - CONCLUSION: No extraluminal contrast to suggest a urinoma or collecting system leak. Constipation. Bernardo Rosario Jr., MD PE at Discharge GENERAL: 41 year old male lying in bed in no acute distress. SKIN: Warm and dry. HEAD: Normocephalic. EYES: Pupils equal and round. No scleral icterus. ENT: No nasal bleeding or discharge. Mucous membranes pink and moist. NECK: Trachea midline. No JVD. CARDIOVASCULAR: Regular rate and rhythm. RESPIRATORY: No accessory muscle use. Lungs clear and diminished to auscultation. Breath sounds equal bilaterally. LEFT chest painful with palpation , no crepitus noted. GASTROINTESTINAL: Abdomen soft, non-tender, nondistended. + BS. MUSCULOSKELETAL: Extremities without cyanosis, or edema. LEFT flank pain with palpation. No tenderness along the spinal column. MAEW, + perfused NEUROLOGICAL: Awake and alert. Normal speech. Hospital Course [place]: Fell from the top rung of a ladder landing on his left side. Transferred for trauma services INJURIES: Grade 3-4 LEFT kidney lac LEFT apical PTX LEFT rib fx (12) PMHx: IVDU (cocaine, oxycodone), PTSD, tobacco use Grade 3-4 LEFT kidney lac Urology consulted, F/U outpatient Pain control UA + hematuria Voiding well, no clots in urine Enc PO fluids at home LEFT apical PTX, LEFT rib fx Supportive care Pulmonary toileting / CXR shows mild bibasilar atelectasis, no rib fx identified Pain control Bowel regimen OOB F/U with PCP in 1 week Plan of care discussed with patient and RN at bedside. Collaborating Trauma surgeon agrees with plan. Case management consulted to assist with discharge planning. Patient requesting to go home. Clear for DC home. Pt Condition on Discharge: Stable Discharge Disposition: Discharge Home Discharge Instructions DIET: Follow Instructions for: As Tolerated, No Restrictions Activities you can perform: Full Weight Bearing Activities to Avoid: Concussion Sports, Contact Sports, Strenuous Activity Dash Ann May 23, 2017 15:28
== END 2017-05-23 17:40 | disposition home or self-care (01) | DRG 964 ==
LOC: NEPE 04:54 → NEDA 05:36 → NEDH 10:13 → N05B 16:45
PROVIDERS: ADMIT Surgery; ATTEND Surgery
DX: S37.032A Laceration of left kidney, unspecified degree, initial encounter (principal); S27.0XXA Traumatic pneumothorax, initial encounter; S22.32XA Fracture of one rib, left side, initial encounter for closed fracture; R31.0 Gross hematuria; W11.XXXA Fall on and from ladder, initial encounter; Y93.89 Activity, other specified; F17.200 Nicotine dependence, unspecified, uncomplicated; F43.10 Post-traumatic stress disorder, unspecified
CPT/HCPCS: 71045; 72128; 74018; 74177; 80048; 80053; 81001; 85025; 85610; 85730; 87086; 96374; 96375; J0131; J2270; J2405; J7030; Q9967